=== PATIENT | female | born 1960 | race Caucasian/White ===

== ENCOUNTER → 2018-07-06 | Outpatient (CLI) | payer OTHER | LOC: LAB SHORT 18:41 → LAB EV 18:41 | DX: G44.001 Cluster headache syndrome, unspecified, intractable (principal) | CPT/HCPCS: 85651 ==

== ENCOUNTER 2019-05-02 12:02 | Emergency (ER) | payer OTHER ==
[~2019-05-02] VITALS: Ht 162.6 cm; Wt 107.3 kg
[2019-05-02 12:52] LABS: BASOPHILS ABSOLUTE AUTO 0.04 K/mm3 (0.00-0.23); BASOPHILS PERCENT AUTO 1 % (0-2); EOSINOPHILS ABSOLUTE AUTO 0.13 K/mm3 (0.00-0.68); EOSINOPHILS PERCENT AUTO 3 % (0-6); Hematocrit 39.3 % (33.0-51.0); Hemoglobin 13.2 g/dL (11.5-16.0); IMMATURE GRAN ABSOLUTE AUTO 0.01 K/mm3 (0.00-0.10); IMMATURE GRAN PERCENT AUTO 0 % (0-1); LYMPHOCYTES ABSOLUTE AUTO 1.63 K/mm3 (0.84-5.20); LYMPHOCYTES PERCENT AUTO 36 % (21-46); MONOCYTES ABSOLUTE AUTO 0.45 K/mm3 (0.16-1.47); MONOCYTES PERCENT AUTO 10 % (4-13); Mean Corpuscular HGB 31.1 pg (26.0-34.0); Mean Corpuscular HGB Conc 33.6 g/dL (31.5-36.5); Mean Corpuscular Volume 93 fL (80-100); Mean Platelet Volume 9.8 fL (9.1-12.4); NEUTROPHILS ABSOLUTE AUTO 2.28 K/mm3 (1.96-9.15); NEUTROPHILS PERCENT AUTO 50 % (41-73); Platelet Count 136 K/mm3 (150-400); RDW Coefficient Variation 12.5 % (11.7-14.2); RDW Standard Deviation 42.8 fL (35.1-46.3); Red Blood Cell Count 4.24 M/mm3 (3.80-5.20); White Blood Cell Count 4.54 K/mm3 (4.00-11.30)
[2019-05-02 13:08] LABS: Alanine Aminotransfer (ALT/SGP 46 U/L (12-78); Albumin, Blood 3.3 g/dL (3.4-5.0); Albumin/Globulin Ratio 0.9 (0.8-1.8); Alk Phos 69 U/L (50-136); Anion Gap 6 mmol/L (6-16); Aspartate Aminotrans (AST/SGOT 31 U/L (12-37); Bilirubin, Total 0.3 mg/dL (0.1-1.0); Blood Urea Nitrogen 14 mg/dL (8-24); Bun/Creatinine Ratio 31.2 (12.0-20.0); CO2, Blood 27 mmol/L (21-32); Calcium, Blood 8.6 mg/dL (8.5-10.1); Chloride, Blood 105 mmol/L (98-108); Creatinine, Blood 0.45 mg/dL (0.40-1.00); Globulin, Blood 3.8 g/dL (2.2-4.0); Glomerular Filtration Rate >60 (60-); Glucose, Blood 132 mg/dL (70-99); Potassium, Blood 3.8 mmol/L (3.5-5.5); Sodium, Blood 138 mmol/L (136-145); Total Protein, Blood 7.1 g/dL (6.4-8.2)
[2019-05-02] MEDS ORDERED: KEFLEX500 MG (13:59)
[2019-05-02] MEDS ORDERED: CYCL10 PO (14:00)
[2019-05-02] MEDS ORDERED: TRULICITY1.5 MG/0.5 (14:01)
[2019-05-02] MEDS ORDERED: Simvastatin40 MG PO (14:01)
[2019-05-02] MEDS ORDERED: METFORMIN HCL500 M3 PO (14:01)
[2019-05-02] MEDS ORDERED: FARXIGA5 MG PO (14:01)
[2019-05-02] MEDS ORDERED: METPRE4DP PO (14:22)
[2019-05-02] MEDS ORDERED: Ventolin/Prove6.7 GM INH (14:22)
== END 2019-05-02 14:30 | disposition home or self-care (01) ==
LOC: ER 12:02
PROVIDERS: Physician Assistant
DX: J45.909 Unspecified asthma, uncomplicated (principal); C50.911 Malignant neoplasm of unspecified site of right female breast; E11.9 Type 2 diabetes mellitus without complications; I10 Essential (primary) hypertension
CPT/HCPCS: 36415; 71046; 80053; 85025; 85379; 94640; 99283-25; J7512

== ENCOUNTER → 2019-05-02 | Outpatient (CLI) | payer OTHER ==
[~2019-05-02] MED LIST: CYCL10 PO; FARXIGA5 MG PO; KEFLEX500 MG; METFORMIN HCL500 M3 PO; METPRE4DP PO; Simvastatin40 MG PO; TRULICITY1.5 MG/0.5; Ventolin/Prove6.7 GM INH
[2019-05-02 12:03] LABS: BASOPHILS ABSOLUTE AUTO 0.03 K/mm3 (0.00-0.23); BASOPHILS PERCENT AUTO 1 % (0-2); EOSINOPHILS ABSOLUTE AUTO 0.14 K/mm3 (0.00-0.68); EOSINOPHILS PERCENT AUTO 3 % (0-6); Hematocrit 40.8 % (33.0-51.0); Hemoglobin 13.7 g/dL (11.5-16.0); IMMATURE GRAN ABSOLUTE AUTO 0.01 K/mm3 (0.00-0.10); IMMATURE GRAN PERCENT AUTO 0 % (0-1); LYMPHOCYTES ABSOLUTE AUTO 1.73 K/mm3 (0.84-5.20); LYMPHOCYTES PERCENT AUTO 36 % (21-46); MONOCYTES ABSOLUTE AUTO 0.43 K/mm3 (0.16-1.47); MONOCYTES PERCENT AUTO 9 % (4-13); Mean Corpuscular HGB 30.8 pg (26.0-34.0); Mean Corpuscular HGB Conc 33.6 g/dL (31.5-36.5); Mean Corpuscular Volume 92 fL (80-100); Mean Platelet Volume 9.8 fL (9.1-12.4); NEUTROPHILS ABSOLUTE AUTO 2.51 K/mm3 (1.96-9.15); NEUTROPHILS PERCENT AUTO 52 % (41-73); Platelet Count 158 K/mm3 (150-400); RDW Coefficient Variation 12.5 % (11.7-14.2); RDW Standard Deviation 41.7 fL (35.1-46.3); Red Blood Cell Count 4.45 M/mm3 (3.80-5.20); White Blood Cell Count 4.85 K/mm3 (4.00-11.30)
[2019-05-02 12:07] LABS: Anion Gap 5 mmol/L (6-16); Blood Urea Nitrogen 14 mg/dL (8-24); CO2, Blood 30 mmol/L (21-32); Calcium, Blood 9.1 mg/dL (8.5-10.1); Chloride, Blood 104 mmol/L (98-108); Creatinine, Blood 0.61 mg/dL (0.40-1.00); Glomerular Filtration Rate >60 (60-); Glucose, Blood 146 mg/dL (70-99); Potassium, Blood 4.5 mmol/L (3.5-5.5); Sodium, Blood 139 mmol/L (136-145)
== END | disposition home or self-care (01) ==
LOC: LAB SHORT 11:57 → LAB EV 11:57
PROVIDERS: Physician Assistant Surgical
DX: R07.81 Pleurodynia (principal)
CPT/HCPCS: 80048; 85025

== ENCOUNTER → 2019-08-30 | Outpatient (CLI) | payer OTHER ==
[2019-08-31 09:53] LABS: Candida species (DNA Probe) Positive (NEGATIVE); G. vaginalis (DNA Probe) Negative (NEGATIVE); T. vaginalis (DNA Probe) Negative (NEGATIVE)
== END | disposition home or self-care (01) ==
LOC: LAB SHORT 13:45 → LAB 13:45
PROVIDERS: Obstetrics & Gynecology
DX: N76.0 Acute vaginitis (principal)
CPT/HCPCS: 87480; 87510; 87660

== ENCOUNTER → 2019-09-27 | Outpatient (CLI) | payer OTHER | LOC: LAB EV 17:11 → LAB SHORT 17:11 | DX: J02.9 Acute pharyngitis, unspecified (principal) | CPT/HCPCS: 87081 ==

== ENCOUNTER → 2019-12-02 | Outpatient (CLI) | payer OTHER ==
[2019-12-02 08:12] LABS: Hematocrit 37.6 % (33.0-51.0); Hemoglobin 12.3 g/dL (11.5-16.0); Mean Corpuscular HGB 29.4 pg (26.0-34.0); Mean Corpuscular HGB Conc 32.7 g/dL (31.5-36.5); Mean Corpuscular Volume 90 fL (80-100); Mean Platelet Volume 10.1 fL (9.1-12.4); Platelet Count 182 K/mm3 (150-400); RDW Coefficient Variation 13.8 % (11.7-14.2); RDW Standard Deviation 44.5 fL (35.1-46.3); Red Blood Cell Count 4.18 M/mm3 (3.80-5.20); White Blood Cell Count 2.08 K/mm3 (4.00-11.30)
[2019-12-02 08:17] LABS: Anion Gap 9 mmol/L (6-16); Blood Urea Nitrogen 12 mg/dL (8-24); CO2, Blood 26 mmol/L (21-32); Calcium, Blood 8.5 mg/dL (8.5-10.1); Chloride, Blood 104 mmol/L (98-108); Creatinine, Blood 0.63 mg/dL (0.40-1.00); Glomerular Filtration Rate >60 (60-); Glucose, Blood 177 mg/dL (70-99); Potassium, Blood 3.9 mmol/L (3.5-5.5); Sodium, Blood 139 mmol/L (136-145)
[2019-12-02 09:01] LABS: BAND PERCENT MAN 3 % (0-8); BASOPHILS ABSOLUTE MAN 0.04 K/mm3 (0.00-0.23); BASOPHILS PERCENT MAN 2 % (0-2); EOSINOPHILS ABSOLUTE MAN 0.04 K/mm3 (0.00-0.68); EOSINOPHILS PERCENT MAN 2 % (0-6); LYMPHOCYTES ABSOLUTE MAN 1.14 K/mm3 (0.84-5.20); LYMPHOCYTES PERCENT MAN 55 % (21-46); MONOCYTES ABSOLUTE MAN 0.12 K/mm3 (0.16-1.47); MONOCYTES PERCENT MAN 6 % (4-13); NEUTROPHILS ABSOLUTE MAN 0.72 K/mm3 (1.96-9.15); SEG NEUTROPHILS PERCENT MAN 32 % (41-73); TOTAL CELLS COUNTED 100
== END ==
LOC: LAB EV 08:06 → LAB SHORT 08:06
PROVIDERS: Physician Assistant Surgical
DX: R07.89 Other chest pain (principal)
CPT/HCPCS: 80048; 84484; 85025

== ENCOUNTER → 2020-01-19 | Outpatient (CLI) | payer OTHER ==
[2020-01-20 10:22] LABS: Candida species (DNA Probe) Negative (NEGATIVE); G. vaginalis (DNA Probe) Negative (NEGATIVE); T. vaginalis (DNA Probe) Negative (NEGATIVE)
== END | disposition home or self-care (01) ==
LOC: LAB SHORT 17:03 → LAB 17:03
PROVIDERS: Obstetrics & Gynecology
DX: B37.3 Candidiasis of vulva and vagina (principal)
CPT/HCPCS: 87480; 87510; 87660

== ENCOUNTER → 2020-09-21 | Outpatient (CLI) | payer OTHER ==
[2020-09-21 14:17] LABS: Candida species (DNA Probe) Negative (NEGATIVE); G. vaginalis (DNA Probe) Negative (NEGATIVE); T. vaginalis (DNA Probe) Negative (NEGATIVE)
== END | disposition home or self-care (01) ==
LOC: LAB SHORT 10:27 → LAB 10:27
PROVIDERS: Obstetrics & Gynecology
DX: N76.0 Acute vaginitis (principal)
CPT/HCPCS: 87480; 87510; 87660

== ENCOUNTER → 2020-11-24 | Outpatient (CLI) | payer OTHER ==
[2020-11-25 10:55] LABS: Candida species (DNA Probe) Negative (NEGATIVE); G. vaginalis (DNA Probe) Negative (NEGATIVE); T. vaginalis (DNA Probe) Negative (NEGATIVE)
== END | disposition home or self-care (01) ==
LOC: LAB SHORT 11:45 → LAB 11:45
PROVIDERS: Obstetrics & Gynecology
DX: N76.0 Acute vaginitis (principal)
CPT/HCPCS: 87480; 87510; 87660